=== PATIENT | female | born 1975 | race African-American/Black ===

== ENCOUNTER 2023-02-03 15:16 | Emergency (ER) | payer MEDICAID ==
[~2023-02-03] VITALS: Ht 162.6 cm; Wt 91.0 kg
[2023-02-03 15:33] VITALS: BP 134/80; PULSE 82; RESP 17; TEMP 99; O2SAT 98
[2023-02-03 16:04] LABS: BASOPHILS % 0.3 % (0.0-2.0); EOSINOPHILS % 1.4 % (0.0-5.0); HEMATOCRIT. 28.9 % (36.0-48.0); HEMOGLOBIN. 8.5 g/dL (12.0-16.0); LYMPHOCYTES % 20.4 % (20.0-50.0); MEAN CORPUSCULAR HEMOGLOBIN 17.2 pg (28.0-32.0); MEAN CORPUSCULAR HGB CONC 29.4 g/dL (31.0-37.0); MEAN CORPUSCULAR VOLUME 58.7 fL (81.0-99.0); MEAN PLATELET VOLUME 8.5 fl (7.4-10.4); NEUTROPHILS % 70.9 % (40.0-76.0); PLATELET 466 x1000/uL (130-400); RED BLOOD CELL COUNT 4.93 mill/uL (4.2-5.4); RED CELL DISTRIBUTION WIDTH 26.8 % (11.6-14.6); WHITE BLOOD COUNT 14.3 x1000/uL (4.5-11.0)
[2023-02-03 16:05] LABS: ADD RBC MORPHOLOGY YES; DIFFERENTIAL COMMENT 1
[2023-02-03 16:10] LABS: PROTHROMBIN TIME 10.5 sec (9.6-11.0)
[2023-02-03 16:24] LABS: ANISOCYTOSIS 3+; HYPOCHROMASIA 3+; MICROCYTOSIS 3+; PLATELET ESTIMATE INCREASED
[2023-02-03 16:48] LABS: ALANINE AMINOTRANSFERASE 12 IU/L (13-61); ALBUMIN 3.4 g/dL (3.4-5.0); ASPARTATE AMINOTRANSFERASE 13 IU/L (15-37); BILIRUBIN TOTAL 0.2 mg/dL (0.1-1.0); CALCIUM 9.1 mg/dL (8.5-10.1); CARBON DIOXIDE 24 mEq/L (21-32); CHLORIDE 106 mEq/L (98-107); CREATININE 0.7 mg/dL (0.6-1.3); GLUCOSE 101 mg/dL (70-105); INDEX HEMOLYSI 1 (1-3); INDEX ICTERIC 1 (1-4); INDEX LIPEMIC 1 (1-3); NT PRO B-TYPE NATRIURETIC PEP 22 pg/mL (5-125); POTASSIUM 3.7 mEq/L (3.5-5.1); PROTEIN TOTAL 8.4 g/dL (6.0-8.3); SODIUM 137 mEq/L (136-145); TROPONIN I HIGH SENSITIVITY 4 ng/L (<54); UREA NITROGEN BLOOD 10 mg/dL (7-21)
== END 2023-02-03 18:35 | disposition left against medical advice (07) ==
LOC: ER 15:16
DX: R06.02 Shortness of breath (principal); Z53.21 Procedure and treatment not carried out due to patient leaving prior to being seen by health care provider
CPT/HCPCS: 36415; 71045; 80053; 83880; 84484; 85025; 93005; 99281

== ENCOUNTER 2023-09-05 17:51 | Emergency (ER) | payer MEDICAID, OTHER ==
[~2023-09-05] VITALS: Ht 172.7 cm; Wt 80.0 kg
[2023-09-05 18:16] VITALS: BP 180/80; PULSE 93; RESP 16; TEMP 98.6; O2SAT 98
== END 2023-09-05 21:03 | disposition left against medical advice (07) ==
LOC: ER 17:51
DX: R09.81 Nasal congestion (principal); Z53.21 Procedure and treatment not carried out due to patient leaving prior to being seen by health care provider